=== PATIENT | male | born 1980 | race Caucasian/White ===

== ENCOUNTER → 2023-10-25 08:35 | Outpatient (REF) | payer BC, SELFPAY | LOC: HWRCS 08:35 | PROVIDERS: ATTENDING PHYSICIAN Internal Medicine Cardiovascular Disease; FAMILY PHYSICIAN Internal Medicine | DX: Z95.2 Presence of prosthetic heart valve (principal); I77.810 Thoracic aortic ectasia; Z98.890 Other specified postprocedural states | CPT/HCPCS: 93306 ==